=== PATIENT | male | born 1950 | race Caucasian/White ===

== ENCOUNTER 2016-10-28 08:05 | Inpatient (IN) | payer BC ==
[2016-10-04 11:44] VITALS: BMI 35.0
--- NOTE | 2016-10-04 12:28 | PAT Medication Instructions ---
Service Date Oct 04, 2016. Current Home Medication List Hctz/Losartan (Hyzaar 12.5MG/50MG), 1 TAB PO QAM Medication Instructions For Your Scheduled Surgery - Hold the following medications the morning of surgery: Hctz/Losartan (Hyzaar 12.5MG/50MG), 1 TAB PO QAM If you have any questions please call us at [phone] or [phone] or [phone]
[2016-10-04 13:00] LABS: BASO % 0.6 %; BASO ABS # 0.04 K/uL (0-0.2); COMPLETE YES; EOS % 1.9 %; IG% 0.1 %; LYMPH % 30.8 %; LYMPH ABS # 2.07 K/uL (1.2-3.4); MEAN CELL VOLUME 91.1 fL (80-100); MEAN CORPUSCULAR HGB CONC 35.1 g/dl (32-36); MEAN PLATELET VOLUME 10.8 fL (7.4-10.4); MONO % 12.9 %; NEUT % 53.7 %; PLATELET COUNT 166 K/uL (130-400); RED BLOOD COUNT 5.38 M/uL (4.7-6.1); WHITE BLOOD COUNT 6.72 K/uL (4.8-10.8)
[2016-10-04 13:04] LABS: URINE APPEARANCE CLEAR (CLEAR); URINE BILIRUBIN NEG (NEG); URINE COLOR YELLOW; URINE NITRITE NEG (NEG); URINE SPECIFIC GRAVITY 1.015 (1.000-1.030); UROBILINOGEN NEG (NEG)
[2016-10-04 13:12] LABS: MANUAL MICROSCOPIC REQUIRED? NO; REVIEW REQ? NO
--- NOTE | 2016-10-04 13:36 | DIAGNOSTIC IMAGING REPORT ---
CHEST 2 VIEWS ROUTINE HISTORY: Preop. COMPARISON: None. FINDINGS: Small calcified granuloma within the right upper lobe. Prior cholecystectomy. Nodular density the left lung base likely represents a nipple shadow. No focal lung consolidations. No evidence for pulmonary edema. The heart is normal in size. No pleural effusions. No pneumothorax. IMPRESSION: No acute process. Electronically signed by: Yo Alcantar M.D. 10/04/2016 1:35 PM Dictated Date/Time: 10/04/2016 1:34 PM
[2016-10-04 15:44] LABS: BUN/CREATININE RATIO 15.5 (10-20); CALCIUM 9.4 mg/dl (8.5-10.1); CREATININE 0.94 mg/dl (0.60-1.40); POTASSIUM 3.9 mmol/L (3.5-5.1)
[2016-10-28] VITALS (9 sets, daily range): BP systolic 109–154; BP diastolic 70–91; PULSE 59–91; TEMP 36.2–36.8; O2SAT 92–95; Ht 167.6 cm; Wt 99.3 kg
[~2016-10-28] VITALS: Ht 167.6 cm; Wt 99.3 kg
[~2016-10-28 08:05] MED LIST: CEFAZOLIN 2000 MG/60 ML D5W IV SCH; HYZ/50125 PO; LACTATED RINGER'S 1000ML 1,000 ML IV SCH
[2016-10-28] MEDS ORDERED: ROCURONIUM BROMIDE 10 MG/ML 5 ML VIAL ONE (08:48)
[2016-10-28] MEDS ORDERED: PROPOFOL IV EMULSION 10 MG/ML 20 ML VIAL IV ONE (08:48)
[2016-10-28] MEDS ORDERED: ONDANSETRON INJ 2 MG/ML 2 ML VIAL ONE (08:48)
[2016-10-28] MEDS ORDERED: GLYCOPYRROLATE INJ 0.2 MG/ML VIAL ONE (08:48)
[2016-10-28] MEDS ORDERED: DEXAMETHASONE SOD INJ 4 MG/ML VIAL ONE (08:48)
[2016-10-28] MEDS ORDERED: NEOSTIGMINE METHYLSULFATE 1 MG/ML 10ML VIAL ONE (08:48)
[2016-10-28] MEDS ORDERED: MIDAZOLAM HCL 1 MG/ML 2ML VIAL ONE (08:48)
[2016-10-28] MEDS ORDERED: LIDOCAINE HCL 2% 2 ML VIAL (20MG/ML) ONE (08:48)
[2016-10-28] MEDS ORDERED: FENTANYL CITRATE INJ 50 MCG/1 ML 2 ML VIAL ONE (08:48)
[2016-10-28] MEDS ORDERED: HYDROmorphone INJ 2 MG/ML SYR/VIAL ONE (08:50)
[2016-10-28] MEDS ORDERED: HYDROmorphone INJ 1 MG/ML SYR IV PRN (09:30)
[2016-10-28] MEDS ORDERED: ONDANSETRON INJ 2 MG/ML 2 ML VIAL IV PRN ×2 (09:30→13:00)
[2016-10-28] MEDS ORDERED: EpHEDrine SULFATE INJ 50 MG/ML AMP IV PRN (09:30)
[2016-10-28] MEDS ORDERED: ATROPINE SULFATE 0.1 MG/ML 5ML SYR IV PRN (09:30)
--- NOTE | 2016-10-28 10:04 | History & Physical Bridge Note ---
H&P Re-Evaluation Bridge Note: I have examined the patient, reviewed the History & Physical and in the interval since the performance of the History & Physical I have noted the following changes of clinical significance: No changes noted
--- NOTE | 2016-10-28 10:05 | History and Physical ---
History & Physical Date Oct 28, 2016. Chief Complaint back and leg pain History of Present Illness The patient is a 66 year old male with complaints of Additional History Hepatic Disease: No Endocrine Disorder: No Kidney Disease: No Hypertension: Yes Heart Disease: No Bleeding Tendencies: No Infectious Diseases: No Allergies Coded Allergies: Clarithromycin (Verified Adverse Reaction, Intermediate, psychological mental changes, 10/28/16) Home Medications Scheduled Hctz/Losartan (Hyzaar 12.5MG/50MG), 1 TAB PO QAM Physical Examination Skin: warm/dry, no rash Eyes: normal inspection, EOMI, sclerae normal ENT: normal ENT inspection, pharynx normal Head: normocephalic, atraumatic Neck: supple, no adenopathy, trachea midline Respiratory/Chest: lungs clear, normal breath sounds, no respiratory distress Cardiovascular: regular rate, rhythm, no edema, no murmur Abdomen / GI: normal bowel sounds, non tender Back: normal inspection Extremities: normal inspection, normal range of motion Neurologic/Psych: no motor/sensory deficits, alert, normal reflexes, oriented x 3 Diagnosis lumbar stenosis Plan of Treatment decompression fusion L4-5 L5-S1
[2016-10-28] MEDS ORDERED: SODIUM CHLORIDE 0.9% PF 50 ML VIAL ONE (10:37)
[2016-10-28] MEDS ORDERED: BACITRACIN 50000 UNIT VIAL ONE (10:37)
[2016-10-28] MEDS ORDERED: BUPIVACAINE/EPINEPHRINE 0.5% MPF 1:200,000 10 ML VIAL ONE (10:37)
[2016-10-28] MEDS ORDERED: FLOSEAL HEMOSTATIC MATRIX 10ML TOP ONE (12:50)
[2016-10-28] MEDS ORDERED: SODIUM CHLORIDE 0.9% 1000ML 1,000 ML IV SCH (12:54)
[2016-10-28] MEDS ORDERED: LORAZEPAM INJ 0.5 MG in SYRINGE 0.75 ML IV PRN (13:00)
[2016-10-28] MEDS ORDERED: HYDROmorphone HCL 0.5MG/ML 50 ML CASSETTE IV PRN (13:00)
[2016-10-28] MEDS ORDERED: METOCLOPRAMIDE HCL INJ 5 MG/ML 2 ML VIAL IV PRN (13:00)
[2016-10-28] MEDS ORDERED: DO NOT ADMINISTER PNEUMOCOCCAL VACCINE PRN ×2 (13:00)
[2016-10-28] MEDS ORDERED: ACETAMINOPHEN IV 100 ML IV PRN (13:00)
[2016-10-28] MEDS ORDERED: PROMETHAZINE HCL INJ 12.5 MG in SODIUM CHLORIDE 0.9% 50ML 50 ML IV PRN (13:00)
[2016-10-28] MEDS ORDERED: LORAZEPAM 0.5 MG TAB PO PRN (13:00)
[2016-10-28] MEDS ORDERED: FAMOTIDINE 20 MG TAB PO PRN (13:00)
[2016-10-28] MEDS ORDERED: ACETAMINOPHEN 500 MG TAB PO PRN (13:00)
[2016-10-28] MEDS ORDERED: hydrOXYzine HCL 25 MG TAB PO PRN (13:00)
[2016-10-28] MEDS ORDERED: SOD PHOSPHATE/SOD BIPHOSPHATE ENEMA 132 ML BTL PR PRN (13:00)
[2016-10-28] MEDS ORDERED: NALOXONE HCL 0.4 MG/1 ML VIAL/CARP IV PRN ×2 (13:00)
[2016-10-28] MEDS ORDERED: DO NOT ADMINISTER FLU VACCINE PRN ×3 (13:00)
[2016-10-28] MEDS ORDERED: BISACODYL 10 MG SUPP PR PRN (13:00)
--- NOTE | 2016-10-28 13:01 | [facility] Operative Report ---
Operative Report Operative Date Oct 28, 2016. Pre-Operative Diagnosis Lumbar Stenosis Post-Operative Diagnosis Lumbar Stenosis Procedure(s) Performed #1 lumbar decompression medial facetectomies foraminotomies L4 5 L5-S1. #2 posterior spinal fusion L4 5 L5-S1. #3 posterior segmental instrumentation L4 5 L5-S1. #4 and interbody fusion L5-S1 #5 placement peek cage 12 x 22 mm at L5-S1. #6 placement of locally harvested morcellized autograft and posterior gutters. #7 placement if he is calm sponge, mask of the posterior gutters Magali autograft in the interbody space. Surgeon DR Salvador Instructor Substitute Cosmetology Surgeon(s) Zelalem Boyle Estimated Blood Loss 350 cc Findings Severe spinal stenosis with spinal listhesis. Specimens none per surgeon Description of Procedure Patient was met with probably case discussed all questions were addressed with the patient was taken back to the operative suite and after undergoing successful general intubation protein was placed in a prone position on the Saad table top Ramón frame. All bony prominences well-padded eyes inspected to ensure no external pressure placed. This point, spine prepped and draped in sterile fashion. Sharp dissection with the assistance of Bovie cautery performed onto an exposing the lamina and transverse processes of L4-L5 and sacral alar bilaterally. From a caudal to cephalad fashion complete laminectomy L5 partial laminectomy of L4 was performed. Obvious pars defect was appreciated. We did perform bilateral medial facetectomies foraminotomies dressing severe spinal stenosis. Pedicle screws then placed in L4 L5 S1 levels bilaterally with assistance of fluoroscopy and copiously sized elias placed. Through a transforaminal approach on the right a complete discectomy of L5-S1 was performed and plate could subcortical bleeding bone and a 12 x 20 mm peek cage filled Magali bone grafting Position. The rods were then locked and final position bilaterally. Transverse processes of L4-L5 sacral alar burred to subcortical bleeding bone. Infuse collagen sponge mass Local harvested morcellized autograft placed in the posterior lateral gutters. 15 round LESLIE drain inserted. Incision closed with 1 Vicryl fascia 2-0 Vicryl subcutaneously for Monocryl 5 closure Steri-Strip sterile dressing placed. Patient awakened taken to PACU in a stable condition. Please note Yannick Boyle present throughout the entire procedure involved in patient positioning complex portions of the procedure and final skin closure. I attest to the content of the Intraoperative Record and any orders documented therein. Any exceptions are noted below.
[2016-10-28] MEDS ORDERED: HYDROmorphone HCL 0.5MG/ML 50 ML CASSETTE ONE (13:22)
--- NOTE | 2016-10-28 13:40 | DIAGNOSTIC IMAGING REPORT ---
LUMBAR SPINE 2 OR 3 VIEW CLINICAL HISTORY: 66 years-old Male presenting with L4-S1 DECOMPRESSION/FUSION/INTERBODY. TECHNIQUE: 2 fluoroscopic spot image(s) obtained as part of intraoperative procedure. COMPARISON: None. FINDINGS/IMPRESSION: Posterior transpedicular screw and elias fixation of with interbody spacer at L5-S1. Retrolisthesis of L4 on L5. Please see surgical report for further details. Fluoroscopy dosage (mGy): Not available. Fluoroscopy time: 25 seconds. Number of fluoroscopic spot images: 2. Electronically signed by: López Rhodes M.D. 10/28/2016 1:39 PM Dictated Date/Time: 10/28/2016 1:38 PM
[2016-10-28] MEDS: FENTANYL CITRATE INJ 50 MCG/1 ML 2 ML VIAL IV PRN ×4 (13:50→14:05)
--- NOTE | 2016-10-28 14:32 | Anesthesiology Progress Note ---
Anesthesia Post Op Note Date & Time Oct 28, 2016 at 14:32 Vital Signs Pain Intensity: 4 Vital Signs Past 12 Hours Date Time Temp Pulse Resp B/P (MAP) Pulse Ox O2 Delivery O2 Flow Rate FiO2 10/28/16 14:10 70 16 112/69 92 Nasal Cannula 2 10/28/16 14:00 36.5 63 16 115/57 95 Oxymask 10 10/28/16 13:50 68 16 139/68 93 Oxymask 10 10/28/16 13:40 83 16 129/72 94 Oxymask 10 10/28/16 13:30 16 96/75 94 Oxymask 10 10/28/16 13:21 36.2 98 16 124/94 93 Oxymask 10 10/28/16 08:34 36.8 76 18 154/91 95 Room Air Notes Mental Status: alert / awake / arousable, participated in evaluation Pt Amnestic to Procedure: Yes Nausea / Vomiting: adequately controlled Pain: adequately controlled Airway Patency, RR, SpO2: stable & adequate BP & HR: stable & adequate Hydration State: stable & adequate Anesthetic Complications: no major complications apparent
[2016-10-28] MEDS: DEXAMETHASONE INJ 6 MG in SYRINGE 0 ML IV SCH ×2 (15:49→23:24)
[2016-10-28] MEDS: CEFAZOLIN IV 2,000 MG in DEXTROSE 5% 50ML 50 ML IV SCH (15:49)
[2016-10-28] MEDS: LACTATED RINGER'S 1000ML 1,000 ML IV SCH ×2 (15:50→22:37)
[2016-10-28] MEDS: DOCUSATE SODIUM/SENNA 50/8.6MG TAB PO SCH (20:17)
[2016-10-29] MEDS ORDERED: COUGH DROP (SUGAR FREE) LOZ 24 LOZ/1 BOX ONE (00:41)
[2016-10-29] MEDS ORDERED: NURSING VERBAL MED ORDER ONE ×2 (00:45→06:30)
[2016-10-29] MEDS ORDERED: COUGH DROP (SUGAR FREE) LOZ 24 LOZ/1 BOX PO PRN (00:45)
[2016-10-29] MEDS: CEFAZOLIN IV 2,000 MG in DEXTROSE 5% 50ML 50 ML IV SCH (02:13)
[2016-10-29 03:14] VITALS: BP 117/76; PULSE 72; TEMP 36.5; O2SAT 96
[2016-10-29] MEDS: LACTATED RINGER'S 1000ML 1,000 ML IV SCH (04:00)
[2016-10-29] MEDS ORDERED: DC PCA SCH (06:00)
[2016-10-29] MEDS ORDERED: HYDROmorphone INJ 1 MG/ML SYR IV PRN (06:00)
[2016-10-29] MEDS ORDERED: HYDROmorphone INJ 0.5 MG/0.5 ML SYR IV PRN (06:00)
[2016-10-29 06:25] LABS: COMPLETE YES; HEMATOCRIT 39.9 % (42-52); IG% 0.2 %; LYMPH % 7.4 %; LYMPH ABS # 1.03 K/uL (1.2-3.4); MEAN CELL VOLUME 90.7 fL (80-100); MEAN CORPUSCULAR HEMOGLOBIN 30.7 pg (25-34); MEAN CORPUSCULAR HGB CONC 33.8 g/dl (32-36); MEAN PLATELET VOLUME 10.8 fL (7.4-10.4); MONO % 5.1 %; NEUT % 87.3 %; PLATELET COUNT 162 K/uL (130-400); WHITE BLOOD COUNT 14.01 K/uL (4.8-10.8)
[2016-10-29 06:59] LABS: BUN/CREATININE RATIO 17.6 (10-20); CALCIUM 8.8 mg/dl (8.5-10.1); CREATININE 1.1 mg/dl (0.60-1.40); POTASSIUM 3.7 mmol/L (3.5-5.1)
[2016-10-29 07:02] VITALS: BP 110/65; PULSE 63; TEMP 36.8; O2SAT 95
[2016-10-29] MEDS: HYDROCODONE/ACETAMOPHEN 5/325MG TAB PO PRN ×2 (08:17→16:55)
[2016-10-29] MEDS: LOSARTAN/HCTZ 50-12.5 EA TAB PO SCH (08:18)
[2016-10-29] MEDS: DEXAMETHASONE INJ 6 MG in SYRINGE 0 ML IV SCH (08:19)
[2016-10-29] MEDS: MAGNESIUM HYDROXIDE SUSP 30 ML UDC PO PRN (12:45)
[2016-10-29] MEDS: ALUMINUM/MAGNESIUM SUSP 30 ML UDC PO PRN (12:45)
[2016-10-29 14:02] VITALS: BP 135/67; PULSE 82; O2SAT 96
[2016-10-29 14:52] VITALS: BP 112/54; PULSE 74; TEMP 36.5; O2SAT 95
[2016-10-29 16:30] VITALS: O2SAT 95
[2016-10-29 22:48] VITALS: BP 115/71; PULSE 65; TEMP 36.6; O2SAT 94
[2016-10-29] MEDS: DOCUSATE SODIUM/SENNA 50/8.6MG TAB PO SCH (23:27)
[2016-10-30] MEDS: POLYETHYLENE (MIRALAX) 17 GM PACK PO SCH ×4 (06:16→23:58)
[2016-10-30 07:10] VITALS: BP 120/76; PULSE 65; TEMP 36.4; O2SAT 98
[2016-10-30] MEDS: ALUMINUM/MAGNESIUM SUSP 30 ML UDC PO PRN (08:51)
[2016-10-30] MEDS: LOSARTAN/HCTZ 50-12.5 EA TAB PO SCH (08:52)
[2016-10-30] MEDS: HYDROCODONE/ACETAMOPHEN 5/325MG TAB PO PRN ×3 (08:52→23:59)
[2016-10-30 14:57] VITALS: BP 122/70; PULSE 69; TEMP 36.5; O2SAT 98
[2016-10-30 16:30] VITALS: O2SAT 98
[2016-10-30] MEDS: DOCUSATE SODIUM/SENNA 50/8.6MG TAB PO SCH (21:23)
[2016-10-30 22:49] VITALS: BP 125/75; PULSE 55; TEMP 36.7; O2SAT 97
[2016-10-30] MEDS: MAGNESIUM HYDROXIDE SUSP 30 ML UDC PO PRN (23:58)
[2016-10-31] MEDS: POLYETHYLENE (MIRALAX) 17 GM PACK PO SCH ×2 (05:55→11:47)
[2016-10-31 07:10] VITALS: BP 134/88; PULSE 56; TEMP 36.6; O2SAT 96
[2016-10-31] MEDS: LOSARTAN/HCTZ 50-12.5 EA TAB PO SCH (08:05)
--- NOTE | 2016-10-31 09:17 | Anesthesiology Progress Note ---
Anesthesia Post Op Note Date & Time Oct 31, 2016 at 09:16 Vital Signs Pain Intensity: 3.0 Vital Signs Past 12 Hours Date Time Temp Pulse Resp B/P (MAP) Pulse Ox O2 Delivery O2 Flow Rate FiO2 10/31/16 07:55 Room Air 10/31/16 07:10 36.6 56 18 134/88 (103) 96 Room Air 10/30/16 23:45 Room Air 10/30/16 22:49 36.7 55 14 125/75 (92) 97 Room Air Notes Mental Status: alert / awake / arousable, participated in evaluation Pt Amnestic to Procedure: Yes Nausea / Vomiting: adequately controlled Pain: adequately controlled Airway Patency, RR, SpO2: stable & adequate BP & HR: stable & adequate Hydration State: stable & adequate Anesthetic Complications: no major complications apparent
[2016-10-31] MEDS: MAGNESIUM HYDROXIDE SUSP 30 ML UDC PO PRN (10:24)
[2016-10-31] MEDS: HYDROCODONE/ACETAMOPHEN 5/325MG TAB PO PRN (10:24)
[2016-10-31] MEDS ORDERED: HYDR-5688 PO (11:01)
--- NOTE | 2016-10-31 11:02 | Discharge Instructions ---
Discharge Instructions Date of Service Oct 31, 2016. Admission Reason for Admission: Lumbar Spinal Stenosis Discharge Discharge Diagnosis / Problem: stenosis Discharge Goals Goal(s): Improve function Activity Recommendations Activity Limitations: per Instructions/Follow-up section . Instructions / Follow-Up Instructions / Follow-Up ACTIVITY RECOMMENDATIONS: SELF CARE INSTRUCTIONS AFTER THORACIC/LUMBAR FUSIONS 1. You may walk to your tolerance. It is good exercise for your legs and back. Expect some back and intermittent leg aches and pains. 2. You may perform "counter-top" level activities (make a sandwich, vicky with a project, etc.). 3. No bending or lifting of more than 10 pounds or back twisting of any nature (roll like a log when turning in bed). 4. You may ride in a car for 20-30 minutes at a time. No driving until after your first visit with your doctor. 5. Frequent changes of position and restricting sitting to 30 minutes at a time will help limit the amount of back spasms and stiffness you may experience. 6. You may discontinue the use of ambulatory aids (cane, crutches, etc.) once your strength and confidence allow. 7. You may compound machine operator the shower and let water strike your incision when you arrive home at least once daily. Do not take a tub bath, sit in a hot tub or go into a swimming pool until after your first recheck in the office. SPECIAL CARE INSTRUCTIONS: VERY IMPORTANT TO READ AND REVIEW A. Your surgical incision has been closed with a cosmetic suture under the skin that will dissolve in about 6 weeks. In 14 days, you can use a pair of clean scissors and cut the suture that is left outside of the skin at the ends of your incision. 1. The small skin tapes can be removed 7 days after surgery if they have not fallen off by that point. 2. You may keep the wound open to air as much as possible to promote healing after post-op day number 5 unless told otherwise by your doctor. 3. If you think the wound looks like it is becoming infected (redness or worsening drainage) and/or you are experiencing fever, chill or worsening back pain and muscle spasms, contact the office so that we may evaluate you as soon as possible. B. Complications are uncommon, but please contact us if you have any signs or symptoms of: 1. wound infection (fever higher than 102.5 degrees F, redness, separation of wound, drainage, or increasing pain from the incision) 2. blood clots in legs (pain, swelling, redness and warmth in legs) 3. urinary tract infection (fever higher than 102.5 degrees F, burning upon urination or increased frequency of urination) 4. nerve problems (inability to walk on your toes or heels, numbness, loss of bowel or bladder control) 5. any other symptoms that concern you C. Please call the office at if you have any concerns or questions about your operation or recovery. D. No smoking! Smoking drastically decreases the chance of a solid fusion. E. Do not take any anti-inflammatory medications (Indocin, Advil, Motrin, Aspirin, Naprosyn, etc.) as these may inhibit the chance of a solid fusion. Tylenol is okay to take for pain. MANAGING PAIN AFTER SPINAL SURGERY 1. Narcotic medication is intended for short-term use and will be provided for surgical pain. Surgical pain usually lasts for a period of 4-6 weeks. Narcotic medication includes Percocet, Vicodin, Darvocet, Tylenol #3 or Lortab. 2. Longer-term pain is more appropriately treated with non-narcotic medication such as Tylenol ES. 3. Muscle spasm is not appropriately treated with narcotics. Muscle relaxers such as Soma, Flexeril or Skelaxin can be used along with Tylenol ES. 4. Remember that we all live with some "aches and pains". This is not unusual or uncommon after an injury or as we get older. a. Back pain is expected and may include muscle spasms for 4 to 6 weeks after surgery. The pain should gradually improve. If the pain worsens for no apparent reason, please contact the office. b. Intermittent leg pain may also be experienced and should not be concerned about unless it worsens for no apparent reason. If so, please contact the office. 5. We will provide appropriate medication within the normal guidelines of their prescribed use. We will also be very cautious and aware of potential abuse and extended duration of patients' medication needs. a. Pain medications are for your comfort and to assist with sleep and rest so that the tissue can heal. They are not provided in order to return to normal activity and should not be used through the day. To do so or worsening pain at night can result from ongoing tissue damage and development of tolerance to the prescribed medicine. 6. Please allow 2-3 days to process refills. Prescriptions will not be mailed but must be picked up at the office. FOLLOW UP VISIT: Keep your scheduled follow-up appointment. Any questions, please call the office at . Current Hospital Diet Patient's current hospital diet: Regular Diet Discharge Diet Recommended Diet: Regular Diet Procedures Procedures Performed: #1 lumbar decompression medial facetectomies foraminotomies L4 5 L5-S1. #2 posterior spinal fusion L4 5 L5-S1. #3 posterior segmental instrumentation L4 5 L5-S1. #4 and interbody fusion L5-S1 #5 placement peek cage 12 x 22 mm at L5-S1. #6 placement of locally harvested morcellized autograft and posterior gutters. #7 placement if he is calm sponge, mask of the posterior gutters Magali autograft in the interbody space. Pending Studies Studies pending at discharge: no Medical Emergencies . Who to Call and When: Medical Emergencies: If at any time you feel your situation is an emergency, please call 911 immediately. . Non-Emergent Contact Non-Emergency issues call your: Primary Care Provider . "Provider Documentation" section prepared by Aristides Salvador. . VTE Core Measure Inpt VTE Proph given/why not?: Tyler Goodman, SCD's
[2016-10-31 12:47] VITALS: BP 134/88; PULSE 56; TEMP 36.6; O2SAT 96
--- NOTE | 2016-10-31 14:14 | Discharge Summary ---
Orthopedic Discharge Summary Admission Date/Reason Oct 28, 2016 at 10:30 Lumbar Spinal Stenosis. Discharge Date/Disposition Oct 31, 2016 Home Diagnosis Principal Diagnosis: Lumbar stenosis Admission Physical Exam As per Admitting History & Physical. Hospital Course Patient underwent lumbar decompression fusion tolerated this well and was taken to the orthopedic floor postoperatively. Postoperative day #1 he was up with physical therapy progress of posterior day #2. Postoperative day #3 LESLIE drain had decreased appropriately. Pain well controlled. Subsequently discharged home. Discharge orders and instructions found on the chart for further review. Discharge Instructions Please refer to the electronic Patient Visit Report (Discharge Instructions) for additional information.
== END 2016-10-31 13:19 | disposition home or self-care (01) | DRG 460 ==
LOC: C.ACU 08:05 → C.3E 10:30 → ENRESERV 13:48
PROVIDERS: ADMIT Orthopaedic Surgery Orthopaedic Surgery of the Spine; ATTEND Orthopaedic Surgery Orthopaedic Surgery of the Spine
PROC: 0SG30A1 (ICD-10-PCS; principal; 2016-10-28 10:15)
PROC: 0SG0071 Fusion of Lumbar Vertebral Joint with Autologous Tissue Substitute, Posterior Approach, Posterior Column, Open Approach (ICD-10-PCS; principal; 2016-10-28 10:15)
PROC: 0ST40ZZ Resection of Lumbosacral Disc, Open Approach (ICD-10-PCS; principal; 2016-10-28 10:15)
DX: M48.06 Spinal stenosis, lumbar region (principal); Z79.899 Other long term (current) drug therapy